=== PATIENT | male | born 1970 | race Caucasian/White ===

== ENCOUNTER → 2018-08-28 07:41 | Outpatient (CLI) | payer BC, SELFPAY ==
--- NOTE | 2018-08-28 07:45 | MRI_ITS ---
STUDY: MRI LEFT KNEE REASON FOR EXAM: Pain mostly superior and lateral from 1 month, history of ACL repair. TECHNIQUE: Standardized fat and water weighted pulse sequences were obtained in all 3 orthogonal planes. COMPARISON: None. FINDINGS: There is attrition of the posterior horn and body of the medial meniscus consistent with partial medial meniscectomy without discrete recurrent medial meniscal tear. There is peripheral subluxation of the medial meniscus. There is arthrosis of the medial femorotibial compartment with marginal osteophytes, chondral loss (T2 sagittal image 7) and slight subchondral bone edema. Normal medial collateral ligamentous complex (MCL). There is mild semimembranosus bursitis (T2 sagittal images 5, 6). There is attrition of the posterior horn of the lateral meniscus suggestive of partial lateral meniscectomy. There is a horizontal band of signal in the body of the lateral meniscus extending to the superior articular surface/free margin (proton-density coronal images 12-14) suggestive of recurrent lateral meniscal tear since this appears separate from the partial meniscectomy site. There is arthrosis of the lateral femorotibial compartment with marginal osteophytes and partial-thickness chondral loss (T2 sagittal image 17). Normal lateral femoral condyle and tibial plateau. There is mild subchondral cystic change of the proximal tibia adjacent to the proximal tibiofibular articulation. Normal lateral collateral (fibular) ligament. Normal popliteus tendon. Normal biceps femoris tendon. There is a tear of the anterior cruciate ligament graft (proton-density sagittal images 22, 23). Normal posterior cruciate ligament (PCL). There is mild lateral tilt of the patella (T2 axial image 8) without patellar subluxation. Normal hyaline cartilage of the patellofemoral compartment. There are marginal osteophytes of the patellofemoral compartment. Normal medial and lateral patellar retinaculum. Normal visualized quadriceps tendon. Normal patellar tendon. Normal Hoffa's fat pad. There is a small joint effusion. There are 2 intra-articular bodies anterior to the anterior horn of the lateral meniscus (T2 coronal image 23), the larger measuring 0.5 cm in transverse dimension. There is mild edema in the anterior subcutis adipose space. There are postoperative changes of the distal femur and proximal tibia from anterior cruciate ligament reconstruction. MRI/Lower Ext Joint Only (Routine) IMPRESSION: Partial lateral meniscectomy with recurrent lateral meniscal tear. Tear of the anterior cruciate ligament graft. Arthrosis of the medial and lateral femorotibial compartments. Mild lateral tilt of the patella. Small joint effusion. Intra-articular bodies. Mild semimembranosus bursitis. Electronically Signed: Cedric Briones MD at 8:41 EDT Tel , Service support ,
== END ==
PROVIDERS: Family Provider Preventive Medicine Occupational Medicine; PCP Preventive Medicine Occupational Medicine; Referring Provider Orthopaedic Surgery
DX: S83.242A Other tear of medial meniscus, current injury, left knee, initial encounter (principal)
CPT/HCPCS: 73721

== ENCOUNTER 2018-09-12 10:00 | Day surgery (SDC) | payer BC, SELFPAY ==
[2018-09-12] VITALS (7 sets, daily range): BP systolic 147–180; BP diastolic 91–101; PULSE 68–89; RESP 15–16; TEMP 35.8–36.6; O2SAT 92–99; BMI 27.8
--- NOTE | 2018-09-12 | LOO_PTH ---
PATIENT: ALL RIVERA LOC: [facility] – [place] U#:[id number] AGE/SX: 48/M ROOM: RE09/12/[address]: Dr. Evelia Newberry DO : 1970 BED: DIS: 09/12/2018 SPEC #: [id number] RECD: 09/12/18 15:12 STATUS: CECILIA REBenita #: [id number] ANIVAL: 09/12/18 00:[address]: Evelia Newberry DEPT: SURGICAL PATHOLOGY RECD BY: Bran Mims ENTERED: 09/12/18 15:12 SP TYPE: LOOSE BODY OTHR DR: Dr. Anthony Kahn DO Tissues: LOOSE BODY Procedures: Decalcification bone/plaque Surgery Specimen Level III HEADER OPERATION: Left knee arthroscopy, lateral meniscus and medial meniscectomy PRE-OP DIAGNOSIS: Tear lateral meniscus left knee, tear anterior cruciate ligament graft TISSUE SUBMITTED: Loose body left knee MICROSCOPIC DIAGNOSIS Loose body left knee: A piece of bone with reactive changes, clinically loose body. KENNY:ata 09/17/18 MICROSCOPIC DESCRIPTION Slides are reviewed. GROSS DESCRIPTION Received in fixative is one container labeled with the patient's name and designated loose body left knee. The specimen consists of a piece of bone measuring 2 x 1.5 x 0.8 cm. The entire specimen is submitted in one cassette after decalcification. / KENNY:ata 09/12/18 TC:5 CPT: 10023, 45933
[2018-09-12] MEDS: Cefazolin 2 GM in 0.9% Normal Saline 100 ML IV (13:10)
--- NOTE | 2018-09-12 13:18 | DCINST_ITS ---
Discharge Diet: No Restrictions - remove dressings and apply bandaids to incision sites after 4 days, ice/elevate/ankle pumps, may get incision wet after 4 days, follow up in 2 wks, call with concerns Discharge Activity: May Not Drive May shower in (days): 1 Ice area for (Minutes): 20 - Every hour while awake. Weight Bearing Status: Weight bearing as tolerated Keep extremity elevated above heart level: Operative Extremity Call your doctor if your incision/area has: Continuous Slow Oozing, Sudden Increased Bleeding, Increased Pain/ Swelling, Increased Redness, Foul Smelling Discharge Call your doctor if you observe: Fever of 101 or Higher, Coldness, Increased Pain, Numbness or Tingling, Change in Color, Calf discomfort Allergies/Adverse Reactions: Allergies No Known Allergies Allergy (Verified 09/11/18 10:11) Medications to take at Discharge Acetaminophen 325 mg PO Q6H PRN PRN 09/11/18 Aspirin 325 mg PO Q4H PRN PRN 09/11/18 Omeprazole [Prilosec] 10 mg PO DAILY 09/11/18 Paroxetine HCl [Paxil] 40 mg PO DAILY 09/11/18 Hydrocodone Bitart/Apap 5-325 [Sulligent 5MG-325MG] 1 - 2 tablet PO Q6H PRN PRN 5 Days #40 tablet 09/12/18 The following prescriptions were given: Hydrocodone Bitart/Apap 5-325 [Sulligent 5MG-325MG] 1 - 2 tablet PO Q6H PRN PRN 5 Days #40 tablet PRN Reason: Pain Primary Care Physician: Anthony Kahn DO [Primary Care Provider] - Test Results: Test results from this visit will be discussed in further detail at your follow- up appointment, if applicable. Please Follow Up With: Evelia Newberry DO - [phone]
--- NOTE | 2018-09-12 13:18 | PCM.OPRPT ---
Report of Operation Date of Procedure: 09/12/18 Pre-Operative Diagnosis: left knee osteoarthritis, loose bodies, synovitis Post-Operative Diagnosis: same, pseudogout Surgery/Procedure Performed:: salk, medial and lateral meniscectomies, extensive synovectomies, loose body removal technical services representative: Arik Bryan Type of Anesthesia:: General Anesthesiologist: Alex Barboza Specimen's removed: loose body 1.5 cm x 1 cm Drains: none Estimated Blood Loss (mL): none Fluids Replaced: 1200cc lr Description of Procedure: Preoperative note Patient is a 48-year-old male with a history of left knee arthroscopy with ACL reconstruction in the past. Has been having some pain locking instability and pain in his posterior superior lateral aspect of his knee. Patient failed conservative treatment and elect to proceed with knee arthroscopy after MRI confirms some arthritis as well as medial and lateral meniscus tears as well as some loose bodies. Risks benefits and alternatives surgery discussed with patient. Risks including but not limited to blood loss, blood clot, infection, neurovascular injury, failure procedure, loss of life and loss of limb. Patient is aware would like proceed with left knee arthroscopy repair is indicated. Operative note Patient seen and examined preoperative holding area. Left knee was marked. Patient is brought to the operating room and placed supine on the operating table. Signing, anesthesia, antibiotics were administered. The left leg was prepped and draped in usual sterile fashion with a tourniquet around his upper thigh. All bony prominences well-padded SCDs placed on his contralateral limb. We then marked out our incisions for anterior lateral anteromedial portal placement. The left leg was then elevated exsanguinated tourniquet was raised her pressure of 250 torr. Timeout was performed. Then created her anterior lateral portal we then able to visualize patellofemoral joint. Patellofemoral joint had grade 3 changes on the trochlear side the patella side he also had grade 3 changes but more on the medial facet tendon on the lateral facet which was more of the articulating piece on the trochlea. We then moved to the medial joint line created anterior medial portal under direct visualization. We able to see the thickened meniscus with calcium deposits consistent with pseudogout. There is grade 4 eburnated changes to the bone kissing lesion on the medial femoral condyle and medial tibial plateau about a 3 x 2 cm lesion. There is also some loose medial meniscus unstable tears which was gently resected back with a shaver and basket. We then reinserted the probe to ensure that we had good stable meniscus remaining which we did have. There is extensive synovitis in the anterior medial and anterior lateral recess which was resected with a shaver. The ACL was obviously torn in the notch. The lateral meniscus also had a stable unstable tear which was resected back with accommodation of a shaver and a basket. We then reinserted the probe and we had a good stable lateral lateral meniscus remaining. We moved to the suprapatellar area the region where he was painful and superolateral area there was a large loose body. We then removed that out the medial portal after it was released from some scar tissue. We had a larger incision to accommodate for the centimeter and a half by centimeter loose body. This loose body was also sent to pathology for further evaluation. The knee was then irrigated with copious amounts of sterile saline. The portals were closed with interrupted 4-0 nylon stitches. Sterile dressings were applied tourniquet was fully inflated for total working time of 38 minutes. Patient tolerated procedure well there are no complications transferred to recovery room in stable condition. Postoperative note Weight-bear as tolerated left leg Call with increased calf pain numbness tingling or further issues arise Pharmacy has prescription We will give family pictures in 2 weeks This note was generated with [employer] dictation software. It may contain incorrect words, spelling, and punctuation that were not noted in checking the note before signing.
[2018-09-12] MEDS: Bupiv/Epi 0.5% Mpf 30 ML Vial (14:15)
[2018-09-12] MEDS: Mupirocin Ointment 22gm Tube 1 APPLIC (14:15)
== END 2018-09-12 15:50 | disposition home or self-care (01) ==
LOC: SDC 10:08 → AC 10:08
PROVIDERS: Family Provider Preventive Medicine Occupational Medicine; PCP Preventive Medicine Occupational Medicine; Referring Provider Orthopaedic Surgery; Visit Provider Orthopaedic Surgery
PROC: (CPT 29870; principal; 2018-09-12 11:20)
DX: M17.12 Unilateral primary osteoarthritis, left knee (principal); M65.9 Synovitis and tenosynovitis, unspecified; M11.262 Other chondrocalcinosis, left knee; C81.90 Hodgkin lymphoma, unspecified, unspecified site; K21.9 Gastro-esophageal reflux disease without esophagitis; F41.9 Anxiety disorder, unspecified; Z79.82 Long term (current) use of aspirin; Z79.899 Other long term (current) drug therapy; Z90.81 Acquired absence of spleen
CPT/HCPCS: 01400; 29876; 29880; 88304; 88311; J7120; J2405